=== PATIENT | male | born 1995 | race Caucasian/White ===

== ENCOUNTER 2021-12-02 01:15 | Inpatient (IN) | payer OTHER ==
[~2021-12-02] VITALS: Ht 177.8 cm; Wt 83.9 kg
--- NOTE | 2021-12-02 01:18 | NUR ---
BIBA TAKEN TO BED #4
[2021-12-02 01:20] VITALS: BP 118/74
--- NOTE | 2021-12-02 01:20 | NUR ---
THU FROM [facility] WITH C/O YELLOWING OF EYES AND SKIN ALONG WITH LOOSE STOOLS. PMH : PARKINSONS, SCHIZOPHRENIA, HTN NKDA
[2021-12-02 02:13] LABS: BASOPHILS % (AUTO) 1.1 % (0.0-2.0); EOSINOPHILS # (AUTO) 0.1 K/uL (0-0.4); EOSINOPHILS % (AUTO) 1.8 % (0.0-4.0); HEMATOCRIT 43.4 % (36-52); HEMOGLOBIN 14.8 g/dL (12.0-18.0); LYMPHOCYTES # (AUTO) 0.9 K/uL (2.0-11.5); LYMPHOCYTES % (AUTO) 25.8 % (20.5-51.1); MEAN CORPUSCULAR HEMOGLOBIN 30 pg (27-31); MEAN CORPUSCULAR HGB CONC 34 g/dL (33-37); MONOCYTES # (AUTO) 0.4 K/uL (0.8-1.0); MONOCYTES % (AUTO) 11.1 % (1.7-9.3); NEUTROPHILS # (AUTO) 2.1 K/uL (1.8-7.7); NEUTROPHILS % (AUTO) 60.2 % (42.2-75.2); PLATELET COUNT (AUTO) 168 K/uL (140-450); RED BLOOD CELL COUNT(AUTO) 4.93 MIL/uL (4.20-6.10); RED CELL DISTRIBUTION WIDTH 14.1 % (11.6-13.7); WHITE BLOOD COUNT (AUTO) 3.6 K/uL (4.8-10.8)
[2021-12-02 02:34] LABS: ANION GAP 15.6 (8-16); CARBON DIOXIDE 26.1 mmol/L (21-32); CREATININE 0.6 mg/dL (0.6-1.3); POTASSIUM 3.7 mmol/L (3.5-5.1); TOTAL BILIRUBIN 8.7 mg/dL (0.0-1.0)
--- NOTE | 2021-12-02 04:10 | NUR ---
RECEIVED CONSENT FROM PTS MOTHER : GREGG AGUILERA. MOTHERS CELL PHONE # [phone]
--- NOTE | 2021-12-02 05:00 | NUR ---
RESTING WITH EYES CLOSED, RESPIRATIONS REGULAR AND UNLABORED
[2021-12-02] MEDS ORDERED: KEP500L PO (06:42)
[2021-12-02] MEDS ORDERED: VITA-16 PO (06:42)
[2021-12-02] MEDS ORDERED: MIRABULK PO (06:42)
[2021-12-02] MEDS ORDERED: OMEP-303 PO (06:42)
[2021-12-02] MEDS ORDERED: CALC-1214 PO (06:42)
[2021-12-02] MEDS ORDERED: ASPI-1749 PO (06:42)
[2021-12-02] MEDS ORDERED: THIA100T45 PO (06:42)
--- NOTE | 2021-12-02 07:26 | NUR ---
LAYING ON THE FLOOR REFUSED TO GET UP, MC/PD CALLED .
--- NOTE | 2021-12-02 07:30 | NUR ---
RECEIVED PT IN [facility] ALERT ORIENTED, DNEIES PAIN OR DISCOMFORT. REMAINS NPO. IV INTACT AND PATENT SL. HX OF SCHIZOPHRENIA NOTED SPEAKING TO INTERNAL STIMULI BUT PT REMAINS CALM AND COOPERATIVE AND FOLLOWS DIRECTIONS. NAD.
[2021-12-02] MEDS ORDERED: ONDANSETRON 4 MG/2 ML VIAL IVP PRN (08:25)
[2021-12-02] MEDS ORDERED: MAGNESIUM OXIDE 400 MG TAB PO PRN (08:25)
[2021-12-02] MEDS ORDERED: MORPHINE SULFATE 4 MG/ML SYR IVP PRN (08:25)
[2021-12-02] MEDS ORDERED: IBUPROFEN 400 MG TAB PO PRN (08:25)
[2021-12-02] MEDS ORDERED: ACETAMINOPHEN 325 MG TAB PO PRN (08:25)
[2021-12-02] MEDS ORDERED: metroNIDAZOLE 500 MG/NS PREMIX 100 ML IV ONE (08:30)
[2021-12-02] MEDS ORDERED: NACL 0.9% 1,000 ML IV ONE (08:30)
[2021-12-02] MEDS ORDERED: PANTOPRAZOLE 40 MG INJ VIAL IVP ONE (08:30)
[2021-12-02] MEDS ORDERED: cefTRIAXone 1,000 MG VIAL ONE (08:47)
[2021-12-02] MEDS: NACL 0.9% 1,000 ML IV SCH ×2 (08:50→20:33)
[2021-12-02] MEDS: ENOXAPARIN 40 MG/0.4 ML SYR SUBQ SCH (08:52)
--- NOTE | 2021-12-02 09:07 | NUR ---
US AT BEDSIDE
--- NOTE | 2021-12-02 09:54 | NUR ---
REPORT MUKUND HAMILTON RN FOR CONTINUATION OF CARE. STABLE ON TX TO FLOOR
--- NOTE | 2021-12-02 10:08 | NUR ---
REPORT GIVEN BY AUTO RADIO MECHANIC VIA PHONECALL. PT AR[facility]IVED [facility] [employer]. A/O X2. STATES NO HALLUCINATIONS CURRENTLY, HOWEVER, STATES, "LAST TIME I HEARD VOICES WAS AT HOME". PT EXPLAINED HEARING VOICES AND DREAMING OF BEING IN ANOTHER "DIMENSION". JAUNDICE OF SCLERA. PUPILS DILATED. RAC @20 SL. NO SOB OR RESPIRATORY DISTRESS. ON RA. NEEDS ALL MET AT THIS TIME. SAFETY PRECAUTIONS IN PLACE. WILL CONTINUE TO MONITOR CLOSELY.
[2021-12-02 10:51] VITALS: BP 121/70
--- NOTE | 2021-12-02 12:05 | NUR ---
DC PLANNIN YRS OLD MALE PATIENT WAS ADMITTED FROM [facility] WITH A DX OF BILIARY OBSTRUCTION , JAUNDICE. PATIENT HAS A HX OF PARKINSON'S SCHIZOPHRENIA AND HTN. CT ABD/PELVIS SHOWED DILATED INTRAHEPATIC BILIARY DUCTS. ULTRASOUND GALLBLADDER SHOWED CHOLELITHIASIS WITHOUT EVIDENCE OF CHOLECYSTITIS. RAPID COVID TEST NEGATIVE. ADMINISTERED IVF, IV ABX ROCEPHIN AND FLAGYL. CONSULTED WITH GI. DC PLAN TO RETURN TO [facility] WHEN STABLE. CM TO FOLLOW Addendum: 12/05/21 at 1512 by Sharda Mccall RN DC PLANNING: PATIENT UNDERWENT OPEN CHOLECYSTECTOMY WITH DIANA DRAIN. DR RAMOS VISITED PATIENT DIANA CAN BE DCE'D TOMORROW 12/06 ADVANCED DIET TOLERATE. CONTINUE IVF AND IV ABX ROCEPHIN. DC PLAN TO RETURN TO [facility] WHEN STABLE CM TO FOLLOW Addendum: 12/06/21 at 1507 by Sharda Mccall RN DC PLANNING: ADVANCED DIET TO CARDIAC DIET, TOLERATED WELL , DIANA DRAIN CONTINUE IV ABX ROCEPHIN . AWAITING FOR DR RAMOS CLEARANCE. DC PLAN TO RETURN TO [facility] WHEN STABLE. CM TO FOLLOW Addendum: 12/07/21 at 1521 by Sharda Mccall RN DC PLANNING: [facility] WILL CODE AND TEST CLERK PATIENT AT 5:30 PM. NOTIFIED FRANCISCA CHARGE NURSE. CM TO FOLLOW
[2021-12-02] MEDS: metroNIDAZOLE 500 MG/NS PREMIX 100 ML IV SCH ×2 (12:53→20:32)
[2021-12-02] MEDS ORDERED: MIDAZOLAM 2 MG/2 ML VIAL ONE (13:50)
[2021-12-02] MEDS ORDERED: PROPOFOL 200 MG/20 ML VIAL IV ONE ×3 (13:51→14:44)
--- NOTE | 2021-12-02 13:51 | NUR ---
DC PLANNING PATIENT IS A 26 YR OLD MALE WHO WAS ADMITTED TO [facility] FROM [facility] ON 12/02/21 FOR BILARY OBSTRUCTION AND JAUNDICE. SW ATTEMPTED TO MEET WITH PATIENT AT BEDSIDE FOR THE PURPOSE FO DISCUSSING AND GATHERING COLLATERAL INFORMATION. PATIENT STRUGGLED TO PROVIDE ANSWERS TO SW PROMPTS. SW OUTREACHED TO PATIENTS MOTHER, GREGG PAULINO, . MOTHER REPORTED THAT PATIENT IS IN PRISON CARE AT [facility] AND HAS BEEN SINCE October. PATIENTS MOTHER REPORTS THAT SHE IS EMERGENCY CONTACT AND MEDICAL DECISION MAKER. MOTHER DENIES CURRENTLY HAVING A.D IN PLACE AT THIS TIME. MOTHER STRUGGLED TO ANSWER OR VERIFY QUESTIONS AND REQUESTED THAT [facility] BE CALLED FOR ADDITIONAL INFORMATION. MICHELLE OUTREACHED TO [facility] AND SPOKE WITH DESMOND (ADMIN) AT [facility]. DESMOND REPORTED THAT PATIENT IS FULL ASSIST AND IS PRIMARILY WHEELCHAIR BOUND. DESMOND REPORTS A MENTAL HEALTH DX OF SCHIZOPHRENIA AND MEDICAL DX OF PARKINSON DISEASE. DESMOND WAS UNAWARE IF PATIENT RECEIVES [facility]. DESMOND REPORTS THAT FAMILY IS ACTIVE WITH PATIENT. DC PLAN IS FOR PATIENT TO RETURN TO [facility].
--- NOTE | 2021-12-02 14:00 | NUR ---
PT OFF TO ERCP
--- NOTE | 2021-12-02 14:09 | NUR ---
CONTACTED TELE-PSYCH CONFERENCE FOR PT. CALL BACK STATING TELE-PSYCH CONFERENCE WILL BE AT 0700 TOMORROW (12/03/21) DUE TO PT CURRENTLY UNDERGOING ERCP.
--- NOTE | 2021-12-02 14:50 | NUR ---
PATIENT HAS BEEN SCREENED AND CATEGORIZED LOW NUTRITION RISK. PATIENT WILL BE SEEN WITHIN 7 DAYS OF ADMISSION. 12/08/[address]
[2021-12-02 16:00] VITALS: BP 119/86
--- NOTE | 2021-12-02 17:00 | NUR ---
SPOKE WITH DR. RAMOS. PLAN FOR LAPAROSCOPIC POSSIBLE OPEN CHOLECYSTECTOMY POSSIBLE CHOLANGIOGRAM. CONSENT IN CHART AND WILL BE SIGNED TOMORROW. ALSO SPOKE WITH DR. YOO REGARDING PLAN FOR PROCEDURE. PT TO BE KEPT NPO.
--- NOTE | 2021-12-02 18:37 | NUR ---
PT RESTING READING THE BIBLE. DENIES PAIN. NO SOB OR RESPIRATORY DISTRESS. ON RA. RR EVEN & UNLABORED. VSS. NEEDS ALL MET SAFETY MEASURES IN PLACE.
--- NOTE | 2021-12-02 19:15 | NUR ---
REPORT GIVEN TO NIGHTSHIFT RN FOR CONTINUITY OF CARE.
--- NOTE | 2021-12-02 19:44 | NUR ---
GET THE REPORT FROM MORNING NURSE , PATIENT IS LYING ON BED, PATIENT IS ALERT AND ORIENTED X 2, CALL LIGHT IS WITHIN THE REACH, WILL CONTINUE TO MONITOR.
[2021-12-02 20:00] VITALS: BP 135/75
--- NOTE | 2021-12-02 22:22 | NUR ---
DR RAMOS CAME AND TALK WITH PATIENT MOM FOR PROCEDURE AND GET TELEPHONE CONSENT WITH WITNESS OF RN AND CHARGE NURSE .
--- NOTE | 2021-12-03 00:30 | NUR ---
PATIENT IS LYING ON BED, NO ANY SOB NOTED AT THIS TIME, ALL DUE MEDS ARE GIVEN PER DR ORDER, CALL LIGHT IS WITHIN THE REACH , WILL CONTINUE TO MONITOR.
[2021-12-03 04:00] VITALS: BP 125/62
--- NOTE | 2021-12-03 04:00 | NUR ---
PATIENT IS LYING ON BED, ALL VITAL SIGN IS WITHIN THE NORMAL RANGE,ALL DUE MEDS ARE GIVEN PER DOCTOR ORDER,CALL LIGHT IS WITHIN THE REACH ,WILL CONTINUE TO MONITOR PATIENT.
[2021-12-03] MEDS: metroNIDAZOLE 500 MG/NS PREMIX 100 ML IV SCH ×3 (05:22→20:29)
[2021-12-03 07:02] LABS: ALBUMIN 2.8 g/dL (3.4-5.0); ANION GAP 14.4 (8-16); CARBON DIOXIDE 23.7 mmol/L (21-32); CREATININE 0.5 mg/dL (0.6-1.3); POTASSIUM 4.1 mmol/L (3.5-5.1); TOTAL BILIRUBIN 6.9 mg/dL (0.0-1.0)
--- NOTE | 2021-12-03 07:05 | NUR ---
RECEIVED REPORT FROM COILED TUBING OPERATOR NURSE FOR CONTINUITY OF CARE. PT ASLEEP IN BED. BREATHING SYMMETRICAL ON ROOM AIR, PER REPORT PT IS BEDBOUND AND INCONTINENT. ON CONTACT PRECAUTIONS. PT NPO X MEDS, FOR LAPAROSCOPY TODAY AT 10AM WITH DR RAMOS. WITH RAC 20G NS AT 80CC/HR. CALL LIGHT WITHIN REACH. ALL SAFETY MEASURES IN PLACE.
--- NOTE | 2021-12-03 07:09 | NUR ---
GAVE REPORT TO MORNING NURSE NEIL CADENCE, PATIENT IS STABLE.
[2021-12-03 08:08] LABS: HEPATITIS A ANTIBODY IGM Negative (Negative); HEPATITIS B CORE AB TOTAL Negative (Negative); HEPATITIS B SURFACE ANTIBODY Reactive (.); HEPATITIS B SURFACE ANTIGEN Negative (Negative)
[2021-12-03] MEDS: ENOXAPARIN 40 MG/0.4 ML SYR SUBQ SCH (08:41)
--- NOTE | 2021-12-03 08:41 | NUR ---
SCHEDULED ROCEPHIN GIVEN ORDERED. LOVENOX NOT GIVEN, PT HAS LAPAROSCOPY PROCEDURE TODAY
[2021-12-03] MEDS: NACL 0.9% 1,000 ML IV SCH ×2 (09:55→23:11)
--- NOTE | 2021-12-03 10:23 | NUR ---
PT TAKEN TO OR, IN STABLE CONDITION
[2021-12-03] MEDS ORDERED: BUPIVACAINE-MPF 0.25% 30 ML VIAL INJ ONE (10:35)
[2021-12-03] MEDS ORDERED: LIDOCAINE/EPI MPF 1%1:200000 30 ML VIAL INJ ONE (10:35)
[2021-12-03] MEDS ORDERED: PROPOFOL 200 MG/20 ML VIAL IV ONE (10:39)
[2021-12-03] MEDS ORDERED: fentaNYL citrate 0.05 MG/ML VIAL ONE (10:40)
[2021-12-03] MEDS ORDERED: SUGAMMADEX SODIUM 200 MG/2 ML VIAL IV ONE (10:41)
[2021-12-03] MEDS: LACTATED RINGERS 1,000 ML IV SCH ×2 (10:50→19:10)
[2021-12-03] MEDS ORDERED: HYDROmorphone 1 MG/ML AMP IVP PRN (10:50)
[2021-12-03] MEDS ORDERED: ONDANSETRON 4 MG/2 ML VIAL IVP PRN (10:50)
[2021-12-03 10:57] LABS: BASOPHILS % (AUTO) 0.8 % (0.0-2.0); EOSINOPHILS # (AUTO) 0.1 K/uL (0-0.4); EOSINOPHILS % (AUTO) 1.5 % (0.0-4.0); HEMATOCRIT 40.8 % (36-52); HEMOGLOBIN 13.7 g/dL (12.0-18.0); LYMPHOCYTES # (AUTO) 0.9 K/uL (2.0-11.5); LYMPHOCYTES % (AUTO) 22.2 % (20.5-51.1); MEAN CORPUSCULAR HEMOGLOBIN 30 pg (27-31); MEAN CORPUSCULAR HGB CONC 34 g/dL (33-37); MEAN CORPUSCULAR VOLUME 88.5 fL (80-94); MONOCYTES # (AUTO) 0.4 K/uL (0.8-1.0); NEUTROPHILS # (AUTO) 2.7 K/uL (1.8-7.7); NEUTROPHILS % (AUTO) 65.5 % (42.2-75.2); PLATELET COUNT (AUTO) 173 K/uL (140-450); RED BLOOD CELL COUNT(AUTO) 4.62 MIL/uL (4.20-6.10); WHITE BLOOD COUNT (AUTO) 4.1 K/uL (4.8-10.8)
[2021-12-03] MEDS ORDERED: ceFAZolin 1,000 MG VIAL ONE (11:17)
--- NOTE | 2021-12-03 13:06 | NUR ---
SPOKE WITH DR NOLASCO (PSYCH) REGARDING PT'S PSYCH CONSULT. MADE AWARE THAT PT IS CURRENTLY AT OR AND IS NOT BACK YET AT THE UNIT. PER , IT WILL BE HARD FOR HER TO ASSESS PT AFTER SURGERY PT MIGHT STILL BE GROGGY FROM ANESTHESIA. PER DR NOLASCO WILL DO CONSULT TOMORROW MORNING BETWEEN [id number]
--- NOTE | 2021-12-03 15:30 | NUR ---
PT BACK FROM OR, S/P OPEN CHOLECYSTECTOMY. NOTED WITH ABDOMINAL BINDER, PER REPORT PT HAS EPISODES OF TRYING TO PULL OUT IV LINE, DIANA DRAIN AND BOYLE CATHETER. NOTED WITH DIANA DRAIN WITH 10ML SANGUINOUS OUTPUT. NO C/O PAIN AT THIS TIME. BOYLE CATHETER INTACT AND PATENT DRAINING KATHERIN COLORED URINE. SCD ALSO IN PLACE. LEFT HAND 20G WITH NS AT 80CC/HR. PT TALKING TO HIS MOTHER AT THIS TIME. [id number] PR90 RR16 TEMP97.1 O2 SAT ON ROOM AIR 94% WILL CONTINUE TO MONITOR
[2021-12-03 16:00] VITALS: BP 136/82
--- NOTE | 2021-12-03 17:55 | NUR ---
CLARIFIED WITH DR RAMOS PT'S DIET, PT S/P OPEN CHOLECYSTECTOMY CURRENTLY ON NPO X MEDS WITH ORDER TO CHANGE TO CLEAR LIQUID DIET
--- NOTE | 2021-12-03 18:30 | NUR ---
PT AWAKE IN BED. BREATHING SYMMETRICAL ON ROOM AIR. DIANA DRAIN WITH 30CC SANGUINOUS OUTPUT. NO C/O PAIN AT THIS TIME.
--- NOTE | 2021-12-03 19:20 | NUR ---
ENDORSED PT TO INDUSTRIAL ENGINEERING NURSE, IN STABLE CONDITION
--- NOTE | 2021-12-03 19:30 | NUR ---
RECEIVED BEDSIDE REPORT FROM DAY SHIFT RN FOR CONTINUITY OF CARE. PT IS AWAKE ON RA. PT IS NOT IN ANY ACUTE DISTRESS. BREATHING EVEN AND UNLABORED. PT HAS LEFT HAND 20 GAUGE WITH NS 80 ML/HR. CALL LIGHT WITHIN REACH. ALL SAFETY MEASURES TAKEN. WILL CONTINUE TO MONITOR THE PT.
[2021-12-03 20:00] VITALS: BP 128/74
--- NOTE | 2021-12-03 20:35 | NUR ---
ALL DUE MEDS GIVEN. NO ADVERSE REACTION NOTED. PT COMPLAIN OF MILD PAIN ON RIGHT SIDE OF ABD. PT DOES NOT WANT ANY PAIN MEDICATION. WILL CONTINUE TO MONITOR THE PT.
--- NOTE | 2021-12-03 23:50 | NUR ---
PT IS AWAKE IN BED. PT IS NOT IN ANY DISTRESS. BREATHING EVEN AND UNLABORED. NO COMPLAINS AT THIS TIME. IVF RUNNING PER MD ORDER. CALL LIGHT WITHIN REACH. ALL SAFETY MEASURES TAKEN. WILL CONTINUE TO MONITOR THE PT.
[2021-12-04] VITALS: BP 118/75
[2021-12-04] MEDS: LACTATED RINGERS 1,000 ML IV SCH ×3 (03:30→20:10)
[2021-12-04 04:00] VITALS: BP 122/83
--- NOTE | 2021-12-04 04:10 | NUR ---
DIANA DRAINED. ABD DRESSING DRY AND INTACT. NO COMPLAINS FROM THE PT. WILL CONTINUE TO MONITOR THE PT.
[2021-12-04] MEDS: metroNIDAZOLE 500 MG/NS PREMIX 100 ML IV SCH ×3 (05:02→20:04)
--- NOTE | 2021-12-04 07:20 | NUR ---
ENDORSED PT TO DAY SHIFT RN FOR CONTINUITY OF CARE. PT IS STABLE.
[2021-12-04 07:23] LABS: BASOPHILS % (AUTO) 0.4 % (0.0-2.0); EOSINOPHILS % (AUTO) 0.2 % (0.0-4.0); HEMATOCRIT 39.5 % (36-52); LYMPHOCYTES # (AUTO) 1.2 K/uL (2.0-11.5); MEAN CORPUSCULAR HEMOGLOBIN 30 pg (27-31); MEAN CORPUSCULAR HGB CONC 33 g/dL (33-37); MEAN CORPUSCULAR VOLUME 89.9 fL (80-94); MONOCYTES # (AUTO) 0.8 K/uL (0.8-1.0); MONOCYTES % (AUTO) 11.1 % (1.7-9.3); NEUTROPHILS # (AUTO) 5.4 K/uL (1.8-7.7); NEUTROPHILS % (AUTO) 72.3 % (42.2-75.2); PLATELET COUNT (AUTO) 187 K/uL (140-450); RED CELL DISTRIBUTION WIDTH 14.8 % (11.6-13.7); WHITE BLOOD COUNT (AUTO) 7.4 K/uL (4.8-10.8)
[2021-12-04 07:24] LABS: ALBUMIN 2.6 g/dL (3.4-5.0); ANION GAP 15.6 (8-16); CARBON DIOXIDE 22.1 mmol/L (21-32); CREATININE 0.7 mg/dL (0.6-1.3); POTASSIUM 3.7 mmol/L (3.5-5.1); TOTAL BILIRUBIN 5.9 mg/dL (0.0-1.0)
--- NOTE | 2021-12-04 08:03 | NUR ---
RECEIVED ENDORSEMENT FROM PM SHIFT NURSE W/ PATIENT ON BED. PIV L. HAND 20G NS @ 80ML/HR INFUSING, BOYLE IN PLACE, DIANA DRAINING. WILL CONTINUE TO MONITOR.
--- NOTE | 2021-12-04 08:26 | NUR ---
RECEIVE ORDER D/C BOYLE. WILL F/U
[2021-12-04] MEDS ORDERED: AMOX-999 PO (08:40)
[2021-12-04] MEDS ORDERED: MORP4SOL10 IVP (08:41)
[2021-12-04] MEDS ORDERED: HYDR-5080 PO (08:41)
[2021-12-04] MEDS: ENOXAPARIN 40 MG/0.4 ML SYR SUBQ SCH (09:22)
--- NOTE | 2021-12-04 09:23 | NUR ---
REMOVED BOYLE AND DRAIN 300ML URINE. PATIENT TOLERATE THE PROCEDURE. WILL CONTINUE TO MONITOR
[2021-12-04] MEDS: NACL 0.9% 1,000 ML IV SCH ×2 (10:43→20:13)
--- NOTE | 2021-12-04 19:30 | NUR ---
ENDORSE PT TO PM SHIFT NURSE W/ PATIENT ON BED. PIV L. HAND 20G LR @ 120ML/HR INFUSING, BOYLE REMOVER PER PCP ORDER BUT PATIENT DID NOT VOID AFTER BOYLE REMOVE; ENDORSE PM SHIFT NURSE CONTINUE TO MONITOR AND INFORM PCP AFTER USING BLADDER SCANNER TO VERIFY AMOUNT OF URINE IN BLADDER, DIANA DRAINING, 30ML REMOVE FOR DAY SHIFT.
--- NOTE | 2021-12-04 19:35 | NUR ---
RECEIVED BEDSIDE REPORT FROM DAY SHIFT RN FOR CONTINUITY OF CARE. PT IS WAKE IN BED ON RA. PT IS NOT IN ANY ACUTE DISTRESS. BREATHING EVEN AND UNLABORED. IVF RUNNING PER MD ORDER. CALL LIGHT WITHIN REACH. ALL SAFETY MEASURES TAKEN. WILL CONTINUE TO MONITOR THE PT.
[2021-12-04 20:00] VITALS: BP 114/69
--- NOTE | 2021-12-04 20:10 | NUR ---
ALL DUE MEDS GIVEN. NO ADVERSE REACTION NOTED. WILL CONTINUE TO MONITOR THE PT.
--- NOTE | 2021-12-04 22:25 | NUR ---
PT WAS CLEANED AND CHANGED. NO COMPLAINS FROM THE PT. WILL CONTINUE TO MONITOR THE PT.
--- NOTE | 2021-12-05 01:22 | NUR ---
PT IS SLEEPING IN BED COMFORTABLY. PT IS NOT IN ANY ACUTE DISTRESS. BREATHING EVEN AND UNLABORED. IVF RUNNING PER MD ORDER. CALL LIGHT WITHIN REACH. ALL SAFETY MEASURES TAKEN. WILL CONTINUE TO MONITOR THE PT.
[2021-12-05 04:00] VITALS: BP 105/75
[2021-12-05] MEDS: LACTATED RINGERS 1,000 ML IV SCH ×3 (04:30→21:10)
[2021-12-05] MEDS: NACL 0.9% 1,000 ML IV SCH ×2 (04:36→11:32)
--- NOTE | 2021-12-05 04:45 | NUR ---
PT WAS CLEANED AND CHANGED. NO COMPLAINS FROM THE PT. CALL LIGHT WITHIN REACH. ALL SAFETY MEASURES TAKEN. WILL CONTINUE TO MONITOR THE PT.
[2021-12-05] MEDS: metroNIDAZOLE 500 MG/NS PREMIX 100 ML IV SCH ×3 (05:11→20:47)
--- NOTE | 2021-12-05 07:11 | NUR ---
ENDORSED PT TO DAY SHIFT RN FOR CONTINUITY OF CARE. ALL NEEDS MET. PT IS STABLE.
--- NOTE | 2021-12-05 07:29 | NUR ---
RECEIVED ENDORSEMENT FROM PM SHIFT NURSE W/ PATIENT REST ON BED. PIV L. HAND 20G NS @ 80ML/HR INFUSING, DIANA DRAINING. WILL CONTINUE TO MONITOR.
[2021-12-05 07:56] VITALS: BP 120/69
[2021-12-05] MEDS: ENOXAPARIN 40 MG/0.4 ML SYR SUBQ SCH (09:11)
[2021-12-05 16:00] VITALS: BP 128/67
--- NOTE | 2021-12-05 19:39 | NUR ---
ENDORSE PT TO PM SHIFT NURSE W/ PATIENT REST ON BED. PIV L. HAND 20G NS @ 80ML/HR INFUSING, DIANA DRAINING
--- NOTE | 2021-12-05 19:40 | NUR ---
[facility]CE[facility] CONT[facility]UITY OF CARE.
[2021-12-05 20:00] VITALS: BP 104/67
[2021-12-06 01:59] VITALS: BP 104/61
--- NOTE | 2021-12-06 02:30 | NUR ---
PT PULLED OUT IV SALINE LOCK. TITUS.
--- NOTE | 2021-12-06 03:00 | NUR ---
IV REINSERTED ON LEFT HAND AND RUNNING WELL.
[2021-12-06 04:00] VITALS: BP 109/59
--- NOTE | 2021-12-06 04:30 | NUR ---
PT PULLED OUT INJECTION CAP FROM IV SITE. BLEEDING PRESENT, IV NEEDLE STILL ATTACHED WHILE BLOOD IS STILL COMING OUT. IV SITE WAS HARD AND UNABLE TO FLUSH. DC IV NEEDLE. MNUREE.
[2021-12-06] MEDS: metroNIDAZOLE 500 MG/NS PREMIX 100 ML IV SCH ×3 (05:00→20:28)
[2021-12-06] MEDS: LACTATED RINGERS 1,000 ML IV SCH ×3 (05:30→22:10)
[2021-12-06 06:48] LABS: ALBUMIN 2.2 g/dL (3.4-5.0); ANION GAP 12.5 (8-16); CARBON DIOXIDE 24.9 mmol/L (21-32); CREATININE 0.6 mg/dL (0.6-1.3); POTASSIUM 3.4 mmol/L (3.5-5.1); TOTAL BILIRUBIN 3.9 mg/dL (0.0-1.0)
[2021-12-06 06:49] LABS: BASOPHILS % (AUTO) 0.8 % (0.0-2.0); EOSINOPHILS # (AUTO) 0.1 K/uL (0-0.4); EOSINOPHILS % (AUTO) 1.7 % (0.0-4.0); HEMATOCRIT 34.2 % (36-52); HEMOGLOBIN 11.4 g/dL (12.0-18.0); LYMPHOCYTES # (AUTO) 1.1 K/uL (2.0-11.5); LYMPHOCYTES % (AUTO) 25.8 % (20.5-51.1); MEAN CORPUSCULAR HEMOGLOBIN 30 pg (27-31); MEAN CORPUSCULAR HGB CONC 33 g/dL (33-37); MEAN CORPUSCULAR VOLUME 89.4 fL (80-94); MONOCYTES # (AUTO) 0.5 K/uL (0.8-1.0); MONOCYTES % (AUTO) 11.3 % (1.7-9.3); NEUTROPHILS # (AUTO) 2.7 K/uL (1.8-7.7); NEUTROPHILS % (AUTO) 60.4 % (42.2-75.2); PLATELET COUNT (AUTO) 168 K/uL (140-450); RED BLOOD CELL COUNT(AUTO) 3.83 MIL/uL (4.20-6.10); RED CELL DISTRIBUTION WIDTH 14.3 % (11.6-13.7); WHITE BLOOD COUNT (AUTO) 4.4 K/uL (4.8-10.8)
[2021-12-06 08:00] VITALS: BP 103/63
--- NOTE | 2021-12-06 08:48 | NUR ---
RECEIVE DR. RAMOS'S CALL REGARDING TO PATIENT'S D/C PLAN. PER MD, PATIENT IS READY TO D/C HOME W/ NO TAMAR AND DIANA. WILL F/U.
[2021-12-06] MEDS: ENOXAPARIN 40 MG/0.4 ML SYR SUBQ SCH (09:01)
[2021-12-06] MEDS: POTASSIUM CHLORIDE 10 MEQ TABER PO PRN (09:04)
--- NOTE | 2021-12-06 11:36 | NUR ---
RECEIVE CALL FROM PHARMACY THAT PATIENT'S IV ROCEPHIN IS COMPLETE AFTER MORNING DOSE. DR. YOO INFORMED AND RECEIVE INSTRUCT THAT "DR FERNÁNDEZ IS THERE THIS WEEK BUT PROBABLY CAN LET IT FALL OFF."
[2021-12-06] MEDS: NACL 0.9% 1,000 ML IV SCH (12:30)
[2021-12-06 16:00] VITALS: BP 104/51
--- NOTE | 2021-12-06 19:23 | NUR ---
ENDORSE PT TO PM SHIFT NURSE W/ STABLE CONDITION, PIV L. WRIST 22G PATENT W/ LR @120ML/HR INFUSING. DIANA REMOVE W/ 10CM DRAINAGE.
--- NOTE | 2021-12-06 19:24 | NUR ---
RECEIVED REPORT FROM DAY SHIFT NURSE FOR CONTINUITY OF PT CARE.
[2021-12-06 20:00] VITALS: BP 104/51
--- NOTE | 2021-12-06 20:50 | NUR ---
PT STATED COMFORTABLE AND DENIED OF PAIN. SURGERY SITE IS DRY AND NICHOLAS INTACT.
--- NOTE | 2021-12-06 22:00 | NUR ---
PT AWAKE STATED NOT SLEEPY. IV SITE ON RIGHT HAND INTACT AND PATENT. IVF SODIUM CHLORIDE IS ATTACHED AND RUNNING AT 80ML/HR, NO S/S OF INFECTION.
[2021-12-07] VITALS: BP 123/62
--- NOTE | 2021-12-07 02:00 | NUR ---
PT IS AWAKE ATTEMPTING TO PULL OUT IV SITE. SECURE IV SITE. IVF IS RUNNING WELL ON RIGHT HAND
[2021-12-07] MEDS: NACL 0.9% 1,000 ML IV SCH ×2 (02:23→13:25)
[2021-12-07 04:00] VITALS: BP 113/63
[2021-12-07] MEDS: LACTATED RINGERS 1,000 ML IV SCH ×2 (06:30→14:50)
[2021-12-07 07:05] LABS: ALBUMIN 2.1 g/dL (3.4-5.0); ANION GAP 10.3 (8-16); CREATININE 0.5 mg/dL (0.6-1.3); POTASSIUM 3.3 mmol/L (3.5-5.1); TOTAL BILIRUBIN 3.1 mg/dL (0.0-1.0)
[2021-12-07 07:17] LABS: BASOPHILS % (AUTO) 0.8 % (0.0-2.0); EOSINOPHILS # (AUTO) 0.1 K/uL (0-0.4); HEMOGLOBIN 10.8 g/dL (12.0-18.0); MEAN CORPUSCULAR HEMOGLOBIN 30 pg (27-31); MEAN CORPUSCULAR HGB CONC 34 g/dL (33-37); MEAN CORPUSCULAR VOLUME 88.8 fL (80-94); MONOCYTES # (AUTO) 0.4 K/uL (0.8-1.0); MONOCYTES % (AUTO) 10.7 % (1.7-9.3); NEUTROPHILS # (AUTO) 2.1 K/uL (1.8-7.7); NEUTROPHILS % (AUTO) 57.5 % (42.2-75.2); PLATELET COUNT (AUTO) 178 K/uL (140-450); RED CELL DISTRIBUTION WIDTH 14.5 % (11.6-13.7); WHITE BLOOD COUNT (AUTO) 3.6 K/uL (4.8-10.8)
[2021-12-07 08:00] VITALS: BP 104/65
[2021-12-07] MEDS: ENOXAPARIN 40 MG/0.4 ML SYR SUBQ SCH (08:24)
[2021-12-07] MEDS: POTASSIUM CHLORIDE 10 MEQ TABER PO PRN (10:52)
--- NOTE | 2021-12-07 11:10 | NUR ---
NOTIFIED DR NEUMANN PATIENT REFUSAL TO TAKE PO POTASSIUM DESPITE ATTEMPS OF .K 3.3 AND AWAITING ORDER.
[2021-12-07] MEDS ORDERED: KCL 20 MEQ/WATER INJ PREMIX 100 ML IV ONE (11:35)
[2021-12-07] MEDS ORDERED: POTASSIUM CHLORIDE IV SCH (12:00)
[2021-12-07] MEDS ORDERED: NACL 0.9% IV SCH (12:00)
[2021-12-07] MEDS: POTASSIUM CHLORIDE 10 MEQ in NACL 0.9% 100 ML IV SCH ×3 (12:48→14:00)
--- NOTE | 2021-12-07 14:06 | NUR ---
ORDER RECEIVED FROM DR FERNÁNDEZ AND POTASSIUM ALREADY COMPLETED ORDERED.
--- NOTE | 2021-12-07 15:30 | NUR ---
PATIENT HAD LARGE BROWN SOFT STOOL.BED AND BATH DONE. ABDOMINAL BINDER REPLACED .KEPT PATIENT DRY AND INTACT. SURGICAL WOUND VERONIQUE WITH NICHOLAS. NO DIANA BULB PRESENT. DCD BY .NOTIFIED PATIENT RE TRANSFER AND UPDATED ELMA WITH PATIENT STATUS. REPORT GIVEN.
[2021-12-07 16:00] VITALS: BP 112/41
== END 2021-12-07 17:25 | DRG 263 ==
LOC: MED 01:15 → MTU 08:25
PROVIDERS: ADMIT Student in an Organized Health Care Education/Training Program; ATTEND Student in an Organized Health Care Education/Training Program
PROC: BF101ZZ Fluoroscopy of Bile Ducts using Low Osmolar Contrast (ICD-10-PCS; 2021-12-03)
PROC: 0DC98ZZ Extirpation of Matter from Duodenum, Via Natural or Artificial Opening Endoscopic (ICD-10-PCS; 2021-12-03)
PROC: 0FC98ZZ Extirpation of Matter from Common Bile Duct, Via Natural or Artificial Opening Endoscopic (ICD-10-PCS; principal; 2021-12-03 10:00)
PROC: 0FT40ZZ Resection of Gallbladder, Open Approach (ICD-10-PCS; 2021-12-04)
PROC: 0FJ44ZZ Inspection of Gallbladder, Percutaneous Endoscopic Approach (ICD-10-PCS; 2021-12-04)
PROC: 0DNU0ZZ Release Omentum, Open Approach (ICD-10-PCS; 2021-12-04)
PROC: BF121ZZ Fluoroscopy of Gallbladder using Low Osmolar Contrast (ICD-10-PCS; 2021-12-04)
DX: K80.67 Calculus of gallbladder and bile duct with acute and chronic cholecystitis with obstruction (principal); G93.40 Encephalopathy, unspecified; R65.10 Systemic inflammatory response syndrome (SIRS) of non-infectious origin without acute organ dysfunction; E44.0 Moderate protein-calorie malnutrition; R17 Unspecified jaundice; G20 Parkinson's disease; F25.9 Schizoaffective disorder, unspecified; R74.01 Elevation of levels of liver transaminase levels; E66.3 Overweight; E78.5 Hyperlipidemia, unspecified; I10 Essential (primary) hypertension; Z20.822 Contact with and (suspected) exposure to COVID-19; Z79.82 Long term (current) use of aspirin; Z79.899 Other long term (current) drug therapy; Z68.26 Body mass index [BMI] 26.0-26.9, adult
CPT/HCPCS: 36415; 74300; 74330; 76705; 80053; 82140; 82374; 83690; 85025; 85610; 86704; 86706; 86708; 86709; 86803; 86886; 86900; 86901; 87081; 87340; 88304; 96365; 96368; 96375; 99285; C1769; C1887; C9113; J0690; J0696; J1650; J2001; J2250; J2704; J3010; J3480; J3490; J7030; J7060; Q0092; Q9967